=== PATIENT | female | born 1970 | race Caucasian/White ===

== ENCOUNTER 2017-06-30 19:37 | Emergency (ER) | payer BC, MEDICAID ==
[2017-06-30] MEDS ORDERED: diphenhydrAMINE 50 MG/ML SDV IVPUSH ONE (19:59)
[2017-06-30] MEDS ORDERED: methylPREDNISolone Sodium Succinate 125 MG/2 ML SDV IVPUSH ONE (20:00)
[2017-06-30] MEDS ORDERED: Sodium Chloride 0.9% 1,000 ML IV SCH (20:00)
[2017-06-30] MEDS ORDERED: Famotidine 20 MG/2 ML SDV IVPUSH ONE (20:00)
[2017-06-30] MEDS ORDERED: Albuterol/Ipratropium 3.0-0.5 MG/3 ML Neb Soln NEB ONE (20:01)
--- NOTE | 2017-06-30 20:04 | EDM.PDOC ---
ED HPI GENERAL MEDICAL PROBLEM - General Chief Complaint: Chest Pain Stated Complaint: SOB CHEST PAIN Time Seen by Provider: 06/30/17 19:59 Source of Information: Reports: Patient, Family (spouse) History Limitations: Reports: No Limitations - History of Present Illness INITIAL COMMENTS - FREE TEXT/NARRATIVE: 46-year-old female presents to the ED with acute onset of diffuse erythema particularly scalp face and anterior chest. Associated shortness of breath and feeling like her throat is closing in. This caused her to cough but no sputum is produced. Symptoms came on acutely approximately an hour ago. Didn't establish heaviness in her anterior chest. Nothing seems to help this. She reports taking Antabuse last 2 days ago to help stop drinking. Today she started drinking again and symptoms started shortly thereafter. She is mildly nauseated but has not vomited. Has not taken any other medications today. Has no exposure to any foods that she hasn't eaten before. She states she is mildly itchy but has not developed any hives. No previous similar reactions also reports a heaviness in her chest about 2 nights ago. Onset: Today Onset Date: 06/30/17 Onset Time: 19:00 Duration: Minutes: Location: Reports: Head, Face, Neck (Scalp), Chest (Anterior upper chest back), Upper Extremity, Left, Upper Extremity, Right Quality: Reports: Other Severity: Moderate (Mild pruritus.) Improves with: Reports: None Worsens with: Reports: Movement (Walking seemed to make it a bit worse.) Associated Symptoms: Reports: Chest Pain, Cough (Heaviness anterior chest.), Shortness of Breath. Denies: Confusion, cough w sputum, Diaphoresis ( Nonproductive cough), Fever/Chills, Headaches, Loss of Appetite, Malaise, Nausea /Vomiting, Rash, Seizure, Syncope, Weakness Middle Chest Pain Score (Numeric/FACES): 5 - Related Data Allergies Allergy/AdvReac Type Severity Reaction Status Date / Time No Known Allergies Allergy Verified 06/30/17 19:43 Home Meds: Home Meds Acyclovir 200 mg PO DAILY 06/30/17 [History] FLUoxetine [PROzac] 20 mg PO BEDTIME 06/30/17 [History] Past Medical History HEENT History: Reports: Other (See Below) Other HEENT History: wears glasses Gastrointestinal History: Reports: GERD, Other (See Below) Other Gastrointestinal History: ulcers Genitourinary History: Reports: Neurogenic Bladder Psychiatric History: Reports: Addiction, Depression Social & Family History - Tobacco Use Smoking Status *Q: Current Every Day Smoker Years of Tobacco use: 30 Packs/Tins Daily: 1 - Alcohol Use Days Per Week of Alcohol Use: 7 Number of Drinks Per Day: 5 Total Drinks Per Week: 35 - Recreational Drug Use Recreational Drug Use: No - Living Situation & Occupation Living situation: Reports: with Spouse Occupation: Unemployed ED ROS GENERAL - Review of Systems Review Of Systems: See Below Constitutional: Reports: Decreased Appetite. Denies: Fever, Chills, Malaise, Weakness, Fatigue, Weight Loss HEENT: Reports: Glasses, Throat Swelling. Denies: Contact Lenses, Dental Pain, Ear Discharge, Hearing Loss, Nose Pain, Vertigo (Feels like it's closing off at times.) Respiratory: Reports: Shortness of Breath, Wheezing, Cough. Denies: Pleuritic Chest Pain, Sputum, Hemoptysis, Other Cardiovascular: Reports: Chest Pain (Central chest heaviness.). Denies: Blood Pressure Problem, Claudication, Dyspnea on Exertion, Edema, Lightheadedness, Orthopnea, Palpitations Endocrine: Reports: Fatigue GI/Abdominal: Reports: No Symptoms Skin: Reports: Pruritis, Erythema (Diffuse erythema particular affecting her scalp face in blotches anterior neck in the V-shaped of the upper anterior chest neck and spotty over her upper extremities hands. The rash is mildly itchy.) Neurological: Reports: No Symptoms Psychiatric: Reports: No Symptoms Hematologic/Lymphatic: Reports: No Symptoms Immunologic: Reports: No Symptoms ED EXAM, GENERAL - Physical Exam Exam: See Below Exam Limited By: No Limitations General Appearance: Alert, WD/WN, Anxious, Moderate Distress, Other (Obviously erythematous blotchy rash on the face scalp upper extremities and V-shaped of her anterior chest.) Eye Exam: Bilateral Eye: Normal Inspection Nose: Normal Inspection, Normal Mucosa, No Blood Throat/Mouth: Normal Inspection, Normal Lips, Normal Teeth, Normal Oropharynx, Other Head: Atraumatic, Normocephalic (Uvula and for the mouth are normal.) Neck: Normal Inspection, Supple, Non-Tender, Full Range of Motion. No: Lymphadenopathy (L), Lymphadenopathy (R) Respiratory/Chest: No Respiratory Distress, Lungs Clear, Normal Breath Sounds, No Accessory Muscle Use. No: Rhonchi, Wheezing, Stridor Cardiovascular: Normal Peripheral Pulses, Regular Rate, Rhythm, No Edema, No Murmur Peripheral Pulses: 2+: Posterior Tibial (L), Posterior Tibial (R), Dorsalis Pedis (L), Dorsalis Pedis (R) GI/Abdominal: Normal Bowel Sounds, Soft, Non-Tender, No Organomegaly, Other Extremities: Redness (Blotchy rash on the hands forearms.) Neurological: Alert ( No hives.), Oriented, CN II-XII Intact, Normal Cognition, Normal Gait Psychiatric: Normal Affect, Normal Mood Skin Exam: Warm, Dry, Erythema (As described above.) EKG INTERPRETATION EKG Date: 06/30/17 Time: 19:45 Rhythm: Other Rate (Beats/Min): [address] [place]: Normal P-Wave: Enlarged (Consider left atrial hypertrophy pattern.) QRS: Normal ST-T: Normal QT: Normal Course - Vital Signs Last Recorded V/S: Last Vital Signs Temp 36.7 C 06/30/17 19:40 Pulse 118 H 06/30/17 19:40 Resp 18 06/30/17 19:40 BP 120/61 06/30/17 19:40 Pulse Ox 94 L 06/30/17 20:07 - Orders/Labs/Meds Orders: Active Orders 24 hr Category Date Time Status EKG Documentation Completion [RC] STAT Care 06/30/17 20:01 Active RT Aerosol Therapy [RC] ASDIRECTED Care 06/30/17 20:01 Active Chest 1V Frontal [CR] Stat Exams 06/30/17 20:01 Taken Sodium Chloride 0.9% [Normal Saline] 1,000 ml Med 06/30/17 20:00 Active IV ASDIRECTED Medication Orders Sodium Chloride (Normal Saline) 1,000 mls @ 150 mls/hr IV ASDIRECTED KAY Last Admin: 06/30/17 20:16 Dose: 150 mls/hr Labs: Laboratory Tests 06/30/17 06/30/17 06/30/17 Range/Units 19:40 19:40 19:40 WBC 10.88 H (3.98-10.04) K/mm3 RBC 4.49 (3.98-5.22) M/mm3 Hgb 14.6 (11.2-15.7) gm/L Hct 41.9 (34.1-44.9) % MCV 93.3 (79.4-94.8) fl MCH 32.5 H (25.6-32.2) pg MCHC 34.8 (32.2-35.5) g/dl RDW Std Deviation 41.1 (36.4-46.3) fL Plt Count 349 (182-369) K/mm3 MPV 9.6 (9.4-12.3) fl Neutrophils % (Manual) 59 (40-60) % Band Neutrophils % 0 (0-10) % Lymphocytes % (Manual) 30 (20-40) % Atypical Lymphs % 2 % Monocytes % (Manual) 7 (2-10) % Eosinophils % (Manual) 2 (0.7-5.8) % Basophils % (Manual) 0 L (0.1-1.2) Platelet Estimate Adequate Plt Morphology Comment Normal RBC Morph Comment Normal PT (8.0-13.0) SECONDS INR Sodium 141 (136-145) mEq/L Potassium 3.5 (3.5-5.1) mEq/L Chloride 105 (98-107) mEq/L Carbon Dioxide 19 L (21-32) mEq/L Anion Gap 20.5 H (5-15) BUN 14 (7-18) mg/dL Creatinine 1.2 H (0.55-1.02) mg/dL Est Cr Clr Drug Dosing 56.97 mL/min Estimated GFR (MDRD) 48 (>60) mL/min BUN/Creatinine Ratio 11.7 L (14-18) Glucose 113 H (74-106) mg/dL Calcium 9.2 (8.5-10.1) mg/dL Magnesium 1.7 L (1.8-2.4) mg/dl Total Bilirubin 0.2 (0.2-1.0) mg/dL AST 19 (15-37) U/L ALT 30 (14-59) U/L Alkaline Phosphatase 84 (46-116) U/L CK-MB (CK-2) 0.7 (0-3.6) ng/ml Troponin I < 0.017 (0.00-0.056) ng/mL Total Protein 7.2 (6.4-8.2) g/dl Albumin 3.6 (3.4-5.0) g/dl Globulin 3.6 gm/dL Albumin/Globulin Ratio 1.0 (1-2) Ethyl Alcohol 0.19 (0.00) gm% 06/30/17 Range/Units 19:40 WBC (3.98-10.04) K/mm3 RBC (3.98-5.22) M/mm3 Hgb (11.2-15.7) gm/L Hct (34.1-44.9) % MCV (79.4-94.8) fl MCH (25.6-32.2) pg MCHC (32.2-35.5) g/dl RDW Std Deviation (36.4-46.3) fL Plt Count (182-369) K/mm3 MPV (9.4-12.3) fl Neutrophils % (Manual) (40-60) % Band Neutrophils % (0-10) % Lymphocytes % (Manual) (20-40) % Atypical Lymphs % % Monocytes % (Manual) (2-10) % Eosinophils % (Manual) (0.7-5.8) % Basophils % (Manual) (0.1-1.2) Platelet Estimate Plt Morphology Comment RBC Morph Comment PT 10.0 (8.0-13.0) SECONDS INR 0.92 Sodium (136-145) mEq/L Potassium (3.5-5.1) mEq/L Chloride (98-107) mEq/L Carbon Dioxide (21-32) mEq/L Anion Gap (5-15) BUN (7-18) mg/dL Creatinine (0.55-1.02) mg/dL Est Cr Clr Drug Dosing mL/min Estimated GFR (MDRD) (>60) mL/min BUN/Creatinine Ratio (14-18) Glucose (74-106) mg/dL Calcium (8.5-10.1) mg/dL Magnesium (1.8-2.4) mg/dl Total Bilirubin (0.2-1.0) mg/dL AST (15-37) U/L ALT (14-59) U/L Alkaline Phosphatase (46-116) U/L CK-MB (CK-2) (0-3.6) ng/ml Troponin I (0.00-0.056) ng/mL Total Protein (6.4-8.2) g/dl Albumin (3.4-5.0) g/dl Globulin gm/dL Albumin/Globulin Ratio (1-2) Ethyl Alcohol (0.00) gm% Meds: Medications Generic Name Dose Route Start Last Admin Trade Name Sarah PRN Reason Stop Dose Admin Sodium Chloride 1,000 mls @ 150 mls/hr 06/30/17 20:00 06/30/17 20:16 Normal Saline IV 150 mls/hr ASDIRECTED KAY Administration Discontinued Medications Generic Name Dose Route Start Last Admin Trade Name Sarah PRN Reason Stop Dose Admin Albuterol/Ipratropium 3 ml 06/30/17 20:01 06/30/17 20:06 Duoneb 3.0-0.5 Mg/3 Ml NEB 06/30/17 20:02 3 ml ONETIME ONE Administration Albuterol/Ipratropium Confirm 06/30/17 20:09 06/30/17 20:27 Duoneb 3.0-0.5 Mg/3 Ml Administered 06/30/17 20:10 Not Given Dose 3 ml .ROUTE .STK-MED ONE Diphenhydramine HCl 50 mg 06/30/17 19:59 06/30/17 20:21 Benadryl IVPUSH 06/30/17 20:00 50 mg ONETIME ONE Administration Famotidine 20 mg 06/30/17 20:00 06/30/17 20:18 Pepcid IVPUSH 06/30/17 20:01 20 mg ONETIME ONE Administration Methylprednisolone Sodium Succinate 125 mg 06/30/17 20:00 06/30/17 20:20 Solu-Medrol IVPUSH 06/30/17 20:01 125 mg ONETIME ONE Administration - Radiology Interpretation Free Text/Narrative:: 46-year-old female presents to the ED with acute onset of erythema anterior upper chest and neck throat closure feeling and mild pruritus particularly of the face and neck. Patient reports taking Antabuse 2 days ago. She is trying to stop drinking once again. Used probably 2-3 months ago. She did start drinking today did initially feel nauseated but this is past. She then developed a diffuse erythematous rash which is moderately pruritic and heaviness in her anterior chest which I interpreted as mild bronchospasm. Over that she had similar type episode 2 days ago rash involvement more just bronchospasm or heaviness in her anterior chest. ECG and D done by triage nurse shows sinus tachycardia at 1 10/m with perhaps mild left atrial hypertrophy pattern. No evidence of acute ischemia is evident. There is a diffuse early repolarization pattern. Examination revealed no abnormalities on chest exam or auscultation. No swelling of the throat or tongue was evident. She has diffuse erythema in the anterior chest face and arms. Prostatic BX presents with acute allergic reaction unclear at this time as to what although Antabuse adverse effect after taking alcohol may be part of the problem. She has subjective heaviness in her anterior chest. I suspect this is bronchospasm. Will give her a DuoNeb and then treat her with Benadryl 50 mg IV 20 mg of Pepcid IV & Medrol 125 mg IV. Routine labs including cardiac markers will also be done. Of note patient smokes a pack per day for 30 pack years. - Re-Assessments/Exams Free Text/Narrative Re-Assessment/Exam: 06/30/17 20:40: Patient is feeling improved. Erythema is fading in the neck face and scalp. She feels the DuoNeb helped relieve most of her chest discomfort. Chest x-ray is completely normal. Clinically she appears to developed an allergy possibly to Antabuse effect with alcohol. Possibility of another source of allergy correction certainly exist such as food borne. 06/30/17 21:01Labs reveal a normal white count at 10.88 with 59% neutrophils no bands. Hemoglobin is 14.6 with a hematocrit of 41.9. MCV is normal at 93.3. Platelets are normal at 349,000 coags are normal chemistry is normal other than potassium low-normal at 3.5. Bicarbonate was 19 slightly low. Anion gap is 20.5. This appears to be secondary to alcohol-induced ketosis. Creatinine is 1.2.. Glucose was 113. Calcium normal 9.2 magnesium low normal at 1.7. Blood alcohol currently a 0.19 g percent. Cardiac markers are normal. She is feeling much improved. She'll be discharged home to use Benadryl 50 mg every 6 hours when necessary for similar type of reaction. Advise no further use of Antabuse in the future. Follow-up with personal care physician if any further problem's occur or return to the ED. Departure - Departure Time of Disposition: 21:05 Disposition: Home, Self-Care 01 Condition: Fair Clinical Impression: Acute allergic reaction Qualifiers: Encounter type: initial encounter Qualified Code(s): T78.40XA - Allergy, unspecified, initial encounter - Discharge Information Referrals: PCP,None [Primary Care Provider] - Forms: ED Department Discharge Additional Instructions: Evaluation in the emergency him tonight in regards to acute onset of allergic reaction involving erythema or redness of the skin particularly of the anterior chest face upper extremities and scalp. Heaviness in the central chest which I believe was due to bronchospasm i.e. contracture of the upper airway from allergic reaction action. This did not produce any wheezing. You're treated with medications for allergic reaction i.e. Pepcid 20 mg IV with Benadryl 50 g IV and Cymetra 125 mg IV. Also giving a breathing treatment which seem to relieve your central chest pressure discomfort which again suggests bronchospasm. Symptoms continued to improve while in the ED and chest x-ray and lab work proved to be normal other than showing mature mildly dehydrated from alcohol use and not eating for the last day or so. Treatment is to be Benadryl every 6 hours if needed first recurrence of similar type reaction. Advise no further use of Antabuse as it is likely the culprit in terms of causing allergic reaction or adverse reaction due to alcohol use. Advise plenty of fluids such as Gatorade or Powerade drink provide rehydration and get back on some food tonight. [facility] at [phone], if further treatment is deemed necessary for help to stop drinking alcohol. - My Orders Last 24 Hours: My Active Orders 06/30/17 20:00 Sodium Chloride 0.9% [Normal Saline] 1,000 ml IV ASDIRECTED 06/30/17 20:01 EKG Documentation Completion [RC] STAT RT Aerosol Therapy [RC] ASDIRECTED Chest 1V Frontal [CR] Stat - Assessment/Plan Last 24 Hours: My Active Orders 06/30/17 20:00 Sodium Chloride 0.9% [Normal Saline] 1,000 ml IV ASDIRECTED 06/30/17 20:01 EKG Documentation Completion [RC] STAT RT Aerosol Therapy [RC] ASDIRECTED Chest 1V Frontal [CR] Stat
[2017-06-30] MEDS ORDERED: Albuterol/Ipratropium 3.0-0.5 MG/3 ML Neb Soln ONE (20:09)
--- NOTE | 2017-07-02 11:40 | CR ---
Chest: Portable view of the chest was obtained. Comparison: No prior chest x-ray. Heart size and mediastinum are within normal limits. Lungs are clear. Bony structures are grossly intact. Impression: 1. Nothing acute is identified on portable chest x-ray. Diagnostic code #1
== END 2017-06-30 21:13 | disposition home or self-care (01) ==
LOC: JD.ED 19:37
DX: T78.40XA Allergy, unspecified, initial encounter (principal); F17.210 Nicotine dependence, cigarettes, uncomplicated
CPT/HCPCS: 36415; 71010; 80053; 82553; 83735; 84484; 85025; 85610; 93005; 94640; 96361; 96374; 96375; 99285; G0480; J1200; J2930; J7040; 93010; 99284

== ENCOUNTER 2017-12-28 16:54 | Emergency (ER) | payer MEDICAID ==
[2017-12-28] MEDS ORDERED: Lidocaine 1% with EPINEPHrine 1:100,000 20 ML MDV INJECT ONE (17:46)
[2017-12-28] MEDS ORDERED: Lidocaine 1% with EPINEPHrine 1:100,000 20 ML MDV ONE (17:55)
--- NOTE | 2017-12-28 18:42 | EDM.PDOC ---
ED HPI GENERAL MEDICAL PROBLEM - General Chief Complaint: Laceration Stated Complaint: RIGHT ANKLE LAC Time Seen by Provider: 12/28/17 17:28 Source of Information: Reports: Patient History Limitations: Reports: No Limitations - History of Present Illness INITIAL COMMENTS - FREE TEXT/NARRATIVE: The patient presents with a laceration to the right heal. She was walking into some ones house and she got hit with a screen door to the heel. She has a 3.5cm laceration to the heal. Her tetanus is up to date. Onset: Sudden Duration: Minutes: Location: Reports: Lower Extremity, Right (heel) Quality: Reports: Sharp Severity: Moderate Improves with: Reports: None Worsens with: Reports: None Associated Symptoms: Reports: No Other Symptoms Right Posterior Ankle Pain Score (Numeric/FACES): 6 - Related Data Allergies Allergy/AdvReac Type Severity Reaction Status Date / Time No Known Allergies Allergy Verified 06/30/17 19:43 Home Meds: Home Meds Acyclovir 200 mg PO DAILY 06/30/17 [History] FLUoxetine [PROzac] 20 mg PO BEDTIME 06/30/17 [History] Oxybutynin 5 mg PO DAILY 12/28/17 [History] Pantoprazole Sodium [Protonix] 40 mg PO DAILY 12/28/17 [History] busPIRone [Buspar] 10 mg PO DAILY 12/28/17 [History] Past Medical History HEENT History: Reports: Other (See Below) Other HEENT History: wears glasses Gastrointestinal History: Reports: GERD, Other (See Below) Other Gastrointestinal History: ulcers Genitourinary History: Reports: Neurogenic Bladder Psychiatric History: Reports: Addiction, Depression Social & Family History - Family History Family Medical History: Noncontributory - Tobacco Use Smoking Status *Q: Current Every Day Smoker Years of Tobacco use: 30 Packs/Tins Daily: 1 - Recreational Drug Use Recreational Drug Use: No - Living Situation & Occupation Living situation: Reports: with Spouse Occupation: Unemployed ED ROS GENERAL - Review of Systems Review Of Systems: See Below Constitutional: Reports: No Symptoms HEENT: Reports: No Symptoms Respiratory: Reports: No Symptoms Cardiovascular: Reports: No Symptoms Endocrine: Reports: No Symptoms GI/Abdominal: Reports: No Symptoms : Reports: No Symptoms Musculoskeletal: Reports: Other (laceration to the right heel and achiles tendon area) ED EXAM, SKIN/RASH Exam: See Below Exam Limited By: No Limitations General Appearance: Alert, No Apparent Distress Ears: Normal External Exam Nose: Normal Inspection Head: Atraumatic, Normocephalic Neck: Normal Inspection Respiratory/Chest: No Respiratory Distress Extremities: Other (3.5 laceration to the posterior ankle) ED SKIN PROCEDURES - Laceration/Wound Repair Right Ankle Lac/Wound length In cm: 3.5 Appearance: Subcutaneous, Irregular Distal NVT: Neuro & Vascular Intact, No Tendon Injury Anesthetic Type: Local Local Anesthesia - Lidocaine (Xylocaine): 1% with EPI Skin Prep: Saline Exploration/Debridement/Repair: Wound Explored, In a Bloodless Field, Explored to Base Closed with: Sutures Suture Size: 3-0 # of Sutures: 5 Suture Type: Nylon, Interrupted, Simple Tetanus Status Addressed: Yes Complications: No Course - Vital Signs Last Recorded V/S: Last Vital Signs Temp 98.6 F 12/28/17 17:14 Pulse 93 12/28/17 17:14 Resp 16 12/28/17 17:14 BP 119/89 12/28/17 17:14 Pulse Ox 95 12/28/17 17:14 - Orders/Labs/Meds Meds: Medications Discontinued Medications Generic Name Dose Route Start Last Admin Trade Name Sarah PRN Reason Stop Dose Admin Lidocaine/Epinephrine 20 ml 12/28/17 17:46 12/28/17 18:14 Xylocaine 1% With Epinephrine 1:100,000 INJECT 12/28/17 17:47 20 ml ONETIME ONE Administration Lidocaine/Epinephrine Confirm 12/28/17 17:55 12/28/17 18:14 Xylocaine 1% With Epinephrine 1:100,000 Administered 12/28/17 17:56 Not Given Dose 20 ml .ROUTE .STK-MED ONE - Re-Assessments/Exams Free Text/Narrative Re-Assessment/Exam: 12/28/17 18:40 I examined the laceration and there was no tendon injury. I sutured her wound. I will discharge her home. Departure - Departure Time of Disposition: 18:40 Disposition: Home, Self-Care 01 Condition: Good Clinical Impression: Laceration of leg Qualifiers: Encounter type: initial encounter Laterality: right Qualified Code(s): S81.811A - Laceration without foreign body, right lower leg, initial encounter - Discharge Information Referrals: Lizbeth Hill NP [Primary Care Provider] - 1 Week Additional Instructions: Wash the wound with warm soapy water 2 times per day and apply antibiotic ointment after. Have the sutures removed in 7 to 10 days. Look for any signs of infection to include redness, swelling, pain or drainage. If you see any of these signs please return and we will need to start oral antibiotics.
== END 2017-12-28 18:49 | disposition home or self-care (01) ==
LOC: JD.ED 16:54
DX: S91.011A Laceration without foreign body, right ankle, initial encounter (principal); K21.9 Gastro-esophageal reflux disease without esophagitis; F17.210 Nicotine dependence, cigarettes, uncomplicated; W22.8XXA Striking against or struck by other objects, initial encounter
CPT/HCPCS: 12002; 99283-25

== ENCOUNTER 2019-01-11 08:02 | Inpatient (IN) | payer BC, MEDICAID ==
[2019-01-11] MEDS ORDERED: Dextrose 5%-0.9% NaCl 1,000 ML IV SCH (08:30)
--- NOTE | 2019-01-11 08:31 | EDM.PDOC ---
ED HPI GENERAL MEDICAL PROBLEM - General Chief Complaint: Gastrointestinal Problem Stated Complaint: BLOOD IN STOOL,DIZZY Time Seen by Provider: 01/11/19 08:21 Source of Information: Reports: Patient History Limitations: Reports: No Limitations - History of Present Illness INITIAL COMMENTS - FREE TEXT/NARRATIVE: 48-year-old female presents to the ED with acute onset of bleeding per rectum since 0100 hrs. this morning. She didn't have a look at the first bowel movement is therefore not sure if there was blood in it. The second one containing a small amount of stool but bright red blood that colored the toilet bowl. Subsequently she has gone almost every hour with diffuse associated lower abdominal cramping pain and remains bright red blood sometimes with clots she thinks and the bottom of the toilet. She has never had a colonoscopy. A history of colon cancer. Previous abdominal surgery is that of a total abdominal hysterectomy with retention of the ovaries. He feels lightheaded dizzy upon standing in fact at one point she had to get down to the floor because she felt she was going to pass out. Initial labs show a BP of 141/71. Pulse of 59 and sinus. Orthostatic BPs are to be done.. No bleeding per rectum is painless. Associated diffuse lower abdominal cramping pain and some chills. She is afebrile. Patient has a history of GERD well-controlled with Protonix or Nexium daily. She denies taking aspirins Motrin or Aleve. Alcohol use usually one or 2 beers daily. Smoker half pack to a pack per day no defined history of peptic ulcer Onset: Today Onset Date: 01/11/19 Onset Time: 01:00 Duration: Hour(s): Location: Reports: Other Quality: Reports: Other Severity: Moderate (Lower abdominal cramping pain which is constant) Improves with: Reports: None ( 6 out of 10) Worsens with: Reports: None Context: Reports: Other (Spontaneous occurrence of bright red bleeding per rectum.). Denies: Activity, Exercise, Sick Contact, Trauma Associated Symptoms: Reports: Malaise, Nausea/Vomiting (For lightheaded dizziness.), Other. 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.) Bilateral Lower Abdomen Pain Score (Numeric/FACES): 8 - Related Data Allergies Allergy/AdvReac Type Severity Reaction Status Date / Time No Known Allergies Allergy Verified 01/11/19 08:11 Home Meds: Home Meds Acyclovir 200 mg PO DAILY 06/30/17 [History] Oxybutynin 5 mg PO DAILY 12/28/17 [History] Pantoprazole Sodium [Protonix] 40 mg PO DAILY 12/28/17 [History] Past Medical History HEENT History: Reports: Other (See Below) Other HEENT History: wears glasses Gastrointestinal History: Reports: GERD, Other (See Below) Other Gastrointestinal History: ulcers Genitourinary History: Reports: Neurogenic Bladder 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: Psychiatric History: Reports: Addiction, Depression - Infectious Disease History Infectious Disease History: Reports: Chicken Pox - Past Surgical History HEENT Surgical History: Reports: Oral Surgery Female Surgical History: Reports: Section, Hysterectomy (With retention of both ovaries) Social & Family History - Family History Family Medical History: Noncontributory - Tobacco Use Smoking Status *Q: Current Every Day Smoker Years of Tobacco use: 35 Packs/Tins Daily: 1 - Caffeine Use Caffeine Use: Reports: Coffee - Alcohol Use Days Per Week of Alcohol Use: 3 Number of Drinks Per Day: 3 Total Drinks Per Week: 9 - Recreational Drug Use Recreational Drug Use: No - Living Situation & Occupation Living situation: Reports: with Spouse Occupation: Unemployed ED ROS GENERAL - Review of Systems Review Of Systems: See Below Constitutional: Reports: Malaise, Weakness, Fatigue, Other (Lightheaded and dizzy.). Denies: Fever, Chills HEENT: Reports: No Symptoms Respiratory: Reports: No Symptoms Cardiovascular: Reports: Other (Occasional nonproductive cough) Endocrine: Reports: Fatigue GI/Abdominal: Reports: Abdominal Pain, Hematochezia (Diffuse intermittent lower abdominal cramping pain which is pretty constant. Associated with bright red bleeding per rectum. As 1:00 this morning.) : Reports: No Symptoms Musculoskeletal: Reports: No Symptoms Skin: Reports: No Symptoms Neurological: Reports: Dizziness (Lightheaded feeling) Psychiatric: Reports: No Symptoms ( faint and had to get down on the floor once this morning.) Hematologic/Lymphatic: Reports: No Symptoms Immunologic: Reports: No Symptoms ED EXAM, GI/ABD - Physical Exam Exam: See Below Exam Limited By: No Limitations General Appearance: Alert, WD/WN, No Apparent Distress, Other (Color is good vital signs are stable.) Eyes: Bilateral: Normal Appearance (No bladder for oral pallor. Pancreas is within normal) Throat/Mouth: Other Head: Atraumatic, Normocephalic (Tongue is minimally dry) Neck: Normal Inspection, Supple, Non-Tender, Full Range of Motion, Limited Range of Motion. No: Carotid Bruit, Lymphadenopathy (L) Respiratory/Chest: No Respiratory Distress, Lungs Clear, Normal Breath Sounds, No Accessory Muscle Use Cardiovascular: Normal Peripheral Pulses, Regular Rate, Rhythm, No Edema, No Gallop, No Murmur, No Rub GI/Abdominal Exam: No Abnormal Bruit, No Mass, Pelvis Stable, Tender (Tender left lower quadrant and suprapubically), Abnormal Bowel Sounds (Sounds are quite active in all 4 quadrants.). No: Guarding ( without guarding or rigidity) , Rigid, Rebound Back Exam: Normal Inspection, Full Range of Motion. No: CVA Tenderness (L), CVA Tenderness (R) Extremities: Normal Inspection, Normal Range of Motion, Non-Tender, Normal Capillary Refill Neurological: Alert, Oriented, CN II-XII Intact, Normal Cognition, Normal Gait Psychiatric: Anxious Skin Exam: Warm, Dry, Intact, Normal Color, No Rash ED ABDOMINAL/GI PROCEDURES - Additional/Other Procedure(s) Procedure(s) (Free Text): Rigid sigmoidoscopy performed up to 22 cm. Visualized portions of the proximal bowel show no abnormalities in the mucosa such as ulceration or any bleeding from above this area. There is a internal hemorrhoid which is deflated and dark bluish abreu in color at the 7 o'clock position that appears to be the source for bleeding although was not actively bleeding on my exam. No anal fissures are evident. No masses were identified. She tolerated this procedure very well. Course - Vital Signs Last Recorded V/S: Last Vital Signs Temp 35.8 C 01/11/19 08:08 Pulse 59 L 01/11/19 08:08 Resp 18 01/11/19 08:08 BP 142/71 H 01/11/19 08:08 Pulse Ox 100 01/11/19 08:08 Orthostatic Blood Pressure [ 131/78 Standing] Orthostatic Blood Pressure [ 144/74 Sitting] Orthostatic Blood Pressure [ 130/71 Supine] - Orders/Labs/Meds Orders: Active Orders 24 hr Category Date Time Status Admission Status [Patient Status] [ADT] Routine ADT 01/11/19 12:32 Active Hemoccult [Fecal Occult Blood Collection] [RC] Care 01/11/19 10:29 Active ASDIRECTED Orthostatic Vital Signs [RC] ASDIRECTED Care 01/11/19 08:21 Active Abdomen 1V Flat [CR] Stat Exams 01/11/19 08:45 Taken Dextrose 5%-0.9% NaCl [Dextrose 5%-Normal Saline] 1,000 Med 01/11/19 08:30 Active ml IV ASDIRECTED Sodium Chloride 0.9% [Saline Flush] Med 01/11/19 10:47 Active 10 ml FLUSH ONETIME PRN metroNIDAZOLE/Normal Saline [Flagyl 500 MG in NS 100 ML Med 01/11/19 12:26 Active ] 500 mg Premix Bag 1 bag IV ONETIME Medication Orders Dextrose/Sodium Chloride (Dextrose 5%-Normal Saline) 1,000 mls @ 999 mls/hr IV ASDIRECTED KAY Last Admin: 01/11/19 09:03 Dose: 999 mls/hr Metronidazole 500 mg/ Premix 100 mls @ 100 mls/hr IV ONETIME ONE Stop: 01/11/19 13:25 Sodium Chloride (Saline Flush) 10 ml FLUSH ONETIME PRN PRN Reason: IV FLUSH Last Admin: 01/11/19 11:04 Dose: 10 ml Labs: Laboratory Tests 01/11/19 01/11/19 01/11/19 Range/Units 08:38 09:00 09:00 WBC 16.84 H (3.98-10.04) K/mm3 RBC 4.64 (3.98-5.22) M/mm3 Hgb 14.6 (11.2-15.7) gm/L Hct 42.9 (34.1-44.9) % MCV 92.5 (79.4-94.8) fl MCH 31.5 (25.6-32.2) pg MCHC 34.0 (32.2-35.5) g/dl RDW Std Deviation 41.4 (36.4-46.3) fL Plt Count 294 (182-369) K/mm3 MPV 9.5 (9.4-12.3) fl Neutrophils % (Manual) 87 H (40-60) % Band Neutrophils % 1 (0-10) % Lymphocytes % (Manual) 8 L (20-40) % Atypical Lymphs % 0 % Monocytes % (Manual) 4 (2-10) % Eosinophils % (Manual) 0 L (0.7-5.8) % Basophils % (Manual) 0 L (0.1-1.2) Toxic Granulation 1+ slight Platelet Estimate Adequate RBC Morph Comment Normal PT 10.4 (9.5-12.1) SECONDS INR 0.95 APTT 29 (24-31) SECONDS Sodium (136-145) mEq/L Potassium (3.5-5.1) mEq/L Chloride (98-107) mEq/L Carbon Dioxide (21-32) mEq/L Anion Gap (5-15) BUN (7-18) mg/dL Creatinine (0.55-1.02) mg/dL Est Cr Clr Drug Dosing mL/min Estimated GFR (MDRD) (>60) mL/min BUN/Creatinine Ratio (14-18) Glucose (74-106) mg/dL Calcium (8.5-10.1) mg/dL Total Bilirubin (0.2-1.0) mg/dL AST (15-37) U/L ALT (14-59) U/L Alkaline Phosphatase (46-116) U/L C-Reactive Protein (<1.0) mg/dL Total Protein (6.4-8.2) g/dl Albumin (3.4-5.0) g/dl Globulin gm/dL Albumin/Globulin Ratio (1-2) Urine Color Yellow (Yellow) Urine Appearance Clear (Clear) Urine pH 6.0 (5.0-8.0) Ur Specific [place] > or = 1.030 (1.005-1.030) Urine Protein Negative (Negative) Urine Glucose (UA) Negative (Negative) Urine Ketones 4+ H (Negative) Urine Occult Blood Negative (Negative) Urine Nitrite Negative (Negative) Urine Bilirubin Negative (Negative) Urine Urobilinogen 0.2 (0.2-1.0) Ur Leukocyte Esterase Negative (Negative) Urine RBC 0-5 (0-5) /hpf Urine WBC 0-5 (0-5) /hpf Ur Squamous Epith Cells 5-10 H (0-5) /hpf Urine Bacteria Few (FEW) /hpf Urine Mucus Moderate H (FEW) /hpf H. pylori IgG Antibody (NEGATIVE) 01/11/19 01/11/19 Range/Units 09:00 09:00 WBC (3.98-10.04) K/mm3 RBC (3.98-5.22) M/mm3 Hgb (11.2-15.7) gm/L Hct (34.1-44.9) % MCV (79.4-94.8) fl MCH (25.6-32.2) pg MCHC (32.2-35.5) g/dl RDW Std Deviation (36.4-46.3) fL Plt Count (182-369) K/mm3 MPV (9.4-12.3) fl Neutrophils % (Manual) (40-60) % Band Neutrophils % (0-10) % Lymphocytes % (Manual) (20-40) % Atypical Lymphs % % Monocytes % (Manual) (2-10) % Eosinophils % (Manual) (0.7-5.8) % Basophils % (Manual) (0.1-1.2) Toxic Granulation Platelet Estimate RBC Morph Comment PT (9.5-12.1) SECONDS INR APTT (24-31) SECONDS Sodium 138 (136-145) mEq/L Potassium 3.9 (3.5-5.1) mEq/L Chloride 103 (98-107) mEq/L Carbon Dioxide 22 (21-32) mEq/L Anion Gap 16.9 H (5-15) BUN 19 H (7-18) mg/dL Creatinine 0.9 (0.55-1.02) mg/dL Est Cr Clr Drug Dosing 74.34 mL/min Estimated GFR (MDRD) > 60 (>60) mL/min BUN/Creatinine Ratio 21.1 H (14-18) Glucose 112 H (74-106) mg/dL Calcium 8.6 (8.5-10.1) mg/dL Total Bilirubin 0.4 (0.2-1.0) mg/dL AST 16 (15-37) U/L ALT 21 (14-59) U/L Alkaline Phosphatase 76 (46-116) U/L C-Reactive Protein 0.3 (<1.0) mg/dL Total Protein 7.1 (6.4-8.2) g/dl Albumin 3.9 (3.4-5.0) g/dl Globulin 3.2 gm/dL Albumin/Globulin Ratio 1.2 (1-2) Urine Color (Yellow) Urine Appearance (Clear) Urine pH (5.0-8.0) Ur Specific [place] (1.005-1.030) Urine Protein (Negative) Urine Glucose (UA) (Negative) Urine Ketones (Negative) Urine Occult Blood (Negative) Urine Nitrite (Negative) Urine Bilirubin (Negative) Urine Urobilinogen (0.2-1.0) Ur Leukocyte Esterase (Negative) Urine RBC (0-5) /hpf Urine WBC (0-5) /hpf Ur Squamous Epith Cells (0-5) /hpf Urine Bacteria (FEW) /hpf Urine Mucus (FEW) /hpf H. pylori IgG Antibody Negative (NEGATIVE) Meds: Medications Generic Name Dose Route Start Last Admin Trade Name Freq PRN Reason Stop Dose Admin Dextrose/Sodium Chloride 1,000 mls @ 999 mls/hr 01/11/19 08:30 01/11/19 09:03 Dextrose 5%-Normal Saline IV 999 mls/hr ASDIRECTED KAY Administration Metronidazole 500 mg/ Premix 100 mls @ 100 mls/hr 01/11/19 12:26 IV 01/11/19 13:25 ONETIME ONE Sodium Chloride 10 ml 01/11/19 10:47 01/11/19 11:04 Saline Flush FLUSH 10 ml ONETIME PRN Administration IV FLUSH Discontinued Medications Generic Name Dose Route Start Last Admin Trade Name Freq PRN Reason Stop Dose Admin Diatrizoate Meglum/Diatrizoate Sod 120 ml 01/11/19 10:47 01/11/19 11:04 Gastrografin 37% PO 01/11/19 10:48 90 ml ONETIME ONE Administration Hydromorphone HCl 0.5 mg 01/11/19 08:38 01/11/19 09:13 Dilaudid IVPUSH 01/11/19 08:39 0.5 mg ONETIME ONE Administration Hydromorphone HCl 0.5 mg 01/11/19 10:11 01/11/19 10:16 Dilaudid IVPUSH 01/11/19 10:12 0.5 mg ONETIME STA Administration Levofloxacin/Dextrose 750 mg/ 150 mls @ 100 mls/hr 01/11/19 09:51 01/11/19 09 :59 Premix IV 01/11/19 11:20 100 mls/hr ONETIME ONE Administration Iohexol 100 ml 01/11/19 10:46 01/11/19 11:04 Omnipaque-300 IVPUSH 01/11/19 10:47 100 ml ONETIME ONE Administration Lidocaine HCl 10 ml 01/11/19 08:39 01/11/19 09:16 Xylocaine 2% Jelly MUCMEM 01/11/19 08:40 10 ml ONETIME ONE Administration Ondansetron HCl 4 mg 01/11/19 08:38 01/11/19 09:10 Zofran IVPUSH 01/11/19 08:39 4 mg ONETIME ONE Administration - Radiology Interpretation Free Text/Narrative:: 48-year-old female presents to the ED with reported sudden onset of lower abdominal cramping pain and then bleeding per rectum almost every hour since 0100 hrs. this morning. Feels chilled at times. No pain in the last 2-3 days in the area. No history of diverticulitis. She is tender in the left lower quadrant without rebound or guarding. Also suprapubically tender. Seems to be bleeding bright red blood with some clots. Painless bowel movement. Feels lightheaded and dizzy. Orthostatic BPs to be done. At this time the abdomen is benign with no peritoneal signs. One view of the abdomen will be obtained with routine labs including coags. We'll plan on pursuing a rigid sigmoidoscopy and consent for this procedure will be obtained. Will give Dilaudid 0.5 mg IV with Zofran 4 mg IV for pain and nausea relief. - Re-Assessments/Exams Free Text/Narrative Re-Assessment/Exam: 01/11/19 09:03 patient is not orthostatic. 01/11/19 09:43 Labs reveal an elevated white count at 16.84 with a left shift of 87% neutrophils and 1% bands. This suggest an underlying infective process such as diverticulitis. Hemoglobin is 14.6 with hematocrit of 42.9. Platelet count is 294,000.. PT is 10.4 with an INR of 0.95 PTT is 29. Sodium 138 with potassium of 3.9. Chloride 103 with a bicarbonate of 22. Anion gap is mildly elevated at 16.9.. BUN is 19. Which is against an upper GI bleed source. Creatinine is 0.9. GFR is greater than 60. Glucose is 112. Calcium is 8.6. Liver function is normal. C-reactive protein is 0.3. Urinalysis shows 4+ ketones. 5-10 squamous cells and moderate amount of mucus but no signs of infection. H. pylori serology is negative for the IgG antibody. Plan due to the suspicion with elevated white count and tenderness in the left lower quadrant patient may have an atypical presentation for diverticulitis. She will therefore have CT of the abdomen and pelvis carried out with oral and IV contrast. She reports the pain is well-controlled after initial dose of Dilaudid 0.5 mg IV and no further nausea. Abdominal x-ray reveals no abnormalities. There is stone in the right upper quadrant likely representing a gallstone. There is no sign of an ileus no free air. Is very minimal stool in the colon. Discussed the findings with the patient and her . We will pursue CT of the abdomen with oral and IV contrast. Clinical suspicion that she has diverticulitis she'll be started on Levaquin 750 mg IV. 01/11/19 10:39 patient did pass a blood clot per rectum. Was tested guaicc positive. He is having more pain after taking oral contrast. Repeat Dilaudid 0.[address] scan of the abdomen and pelvis has been completed. It shows a small portion of the visualized lung bases to be showing slight scarring within the left base. She has a small hiatal hernia containing contrast with reflux into the distal esophagus. Spleen appears normal. Single large gallstone noted within the gallbladder showing calcification measuring about 2.2 cm in size. Pancreas appears within normal limits kidney shows symmetric and contrast enhancement. There is a large cyst noted within the mid right kidney at 2.7 cm. Kidneys otherwise appear unremarkable. Aorta shows no aneurysm. No retroperitoneal adenopathy or mesenteric abnormalities are identified. Pelvic no pelvic mass or definite adenopathy is noted. Appendix is seen and normal in size. There is diffuse bowel wall thickening with bowel wall edema noted within the descending colon. Findings are compatible with a nonspecific colitis. Bowel is otherwise within normal limits in appearance. No free fluid or inflammatory changes are seen. Delayed images show contrast within the distal ureters and bladder. 01/11/19 11:45: Spoke with Dr. Bianca Wood --neonatal intensive care nurse surgeon and she will see the patient on the [facility] surgery floor. She prefers the patient be admitted to the [facility] service under hospitalist care. I therefore did speak to Dr. Anders who is on-call this weekend. He will attend her in the ED. Departure - Departure Time of Disposition: 12:37 Disposition: Admitted As Inpatient 66 Condition: Fair Clinical Impression: Lower gastrointestinal bleed, Non-specific colitis Abdominal pain Qualifiers: Abdominal location: left lower quadrant Qualified Code(s): R10.32 - Left lower quadrant pain - Discharge Information *PRESCRIPTION DRUG MONITORING PROGRAM REVIEWED*: Not Applicable *COPY OF PRESCRIPTION DRUG MONITORING REPORT IN PATIENT LOBITO: Not Applicable - My Orders Last 24 Hours: My Active Orders 01/11/19 08:21 Orthostatic Vital Signs [RC] ASDIRECTED 01/11/19 08:30 Dextrose 5%-0.9% NaCl [Dextrose 5%-Normal Saline] 1,000 ml IV ASDIRECTED 01/11/19 08:45 Abdomen 1V Flat [CR] Stat 01/11/19 10:29 Hemoccult [Fecal Occult Blood Collection] [RC] ASDIRECTED 01/11/19 10:47 Sodium Chloride 0.9% [Saline Flush] 10 ml FLUSH ONETIME PRN 01/11/19 12:26 metroNIDAZOLE/Normal Saline [Flagyl 500 MG in NS 100 ML] 500 mg Premix Bag 1 bag IV ONETIME 01/11/19 12:32 Admission Status [Patient Status] [ADT] Routine - Assessment/Plan Last 24 Hours: My Active Orders 01/11/19 08:21 Orthostatic Vital Signs [RC] ASDIRECTED 01/11/19 08:30 Dextrose 5%-0.9% NaCl [Dextrose 5%-Normal Saline] 1,000 ml IV ASDIRECTED 01/11/19 08:45 Abdomen 1V Flat [CR] Stat 01/11/19 10:29 Hemoccult [Fecal Occult Blood Collection] [RC] ASDIRECTED 01/11/19 10:47 Sodium Chloride 0.9% [Saline Flush] 10 ml FLUSH ONETIME PRN 01/11/19 12:26 metroNIDAZOLE/Normal Saline [Flagyl 500 MG in NS 100 ML] 500 mg Premix Bag 1 bag IV ONETIME 01/11/19 12:32 Admission Status [Patient Status] [ADT] Routine
[2019-01-11] MEDS ORDERED: Ondansetron 4 MG/2 ML SDV IVPUSH ONE (08:38)
[2019-01-11] MEDS ORDERED: HYDROmorphone 0.5 MG/0.5 ML Syringe IVPUSH ONE (08:38)
[2019-01-11] MEDS ORDERED: Lidocaine 2% Jelly 10 ML Urojet MUCMEM ONE (08:39)
[2019-01-11] MEDS ORDERED: Levofloxacin/Dextrose 5%-Water 750 MG in Premix Bag 1 BAG IV ONE (09:51)
[2019-01-11] MEDS ORDERED: HYDROmorphone 0.5 MG/0.5 ML Syringe IVPUSH STA ×2 (10:11→13:03)
[2019-01-11] MEDS ORDERED: Iohexol 647 MG/ML 100 ML Bottle IVPUSH ONE (10:46)
[2019-01-11] MEDS ORDERED: Sodium Chloride 0.9% 10 ML Syringe FLUSH PRN (10:47)
[2019-01-11] MEDS ORDERED: Diatrizoate Meglumine/Diatrizoate Sodium 37% 120 ML Bottle PO ONE (10:47)
--- NOTE | 2019-01-11 11:34 | CT ---
CT abdomen and pelvis Technique: Multiple axial sections were obtained from above the dome of the diaphragm inferiorly through the pubic symphysis. Intravenous and oral contrast was utilized. Delayed images were obtained through the bladder. Comparison: Prior abdominal plain film study performed earlier on the same day (9:05 AM). Findings: Small portion of the visualized lung bases show slight scarring within the left base. Liver contains no focal parenchymal abnormality. Small hiatal hernia is seen with contrast reflux into distal esophagus. Spleen appears within normal limits. Single large gallstone is noted within the gallbladder showing calcification and measuring about 2.2 cm in size. Pancreas appears within normal limits. Kidneys show symmetric contrast enhancement. Cyst is noted within the mid right kidney measuring approximately 2.7 cm in size. Kidneys are otherwise unremarkable. Aorta shows no aneurysm. No retroperitoneal adenopathy or mesenteric abnormalities are seen. No pelvic mass or adenopathy is seen. Appendix is seen which is normal in size. Bowel wall thickening with bowel wall edema is noted within the descending colon. Findings are compatible with a nonspecific colitis. Bowel is otherwise within normal limits in appearance. No free fluid or inflammatory change is seen. Delayed images show contrast within the distal ureters and bladder. Bone window settings were reviewed which appear within normal limits for the patient's age. Impression: 1. Bowel wall thickening with bowel wall edema is seen within the descending colon. Findings are compatible with a nonspecific colitis. 2. Other incidental findings as noted above. Diagnostic code #3
[2019-01-11] MEDS ORDERED: metroNIDAZOLE/Normal Saline 500 MG in Premix Bag 1 BAG IV ONE (12:26)
[2019-01-11] MEDS ORDERED: Acetaminophen 325 MG Tab PO PRN (13:18)
--- NOTE | 2019-01-11 14:26 | HP ---
DATE OF ADMISSION: 01/11/2019 HISTORY OF PRESENT ILLNESS: This is a 48-year-old female who presents to the ER with complaints of abdominal pain, followed by bloody stools. The patient was seen by Dr. Hills around 8:00 a.m. this morning with the onset of bloody stools and diarrhea last night, accompanied by a colicky abdominal pain. She did not know it was bloody until she passed a 2nd stool. The patient has no history of previous symptoms such as this other than 2 or 3 episodes where she would get a severe abdominal pain over the past 2-3 years, sometimes severe enough to cause her to not be able to stand up and then passing. She has never before passed bloody or melenic stool. She has had tight small bowel movements during those previous episodes, and she thought this was just the cause of it. She felt like she was going to pass out, so she states that she would just lie down on the ground before she did this. She has had some mild fever and chills, but she has had no tainted food that she is aware of. Yesterday, she ate a couple of hot dogs, some ice cream from home, and did drink water. She has no exposure to well water. No exposure to sick animals. She does not live on a farm, and she does not drink well water. Pain associated with this has been very severe. She required some Dilaudid. The patient has had previous abdominal hysterectomy and oophorectomy, but otherwise no abdominal surgery. The patient has minimal joint symptoms other than stiffness. The patient has no history of hepatitis, renal or liver disease, or pancreatitis. The patient does drink alcohol. Does not do drugs. Does smoke daily. The patient has no occupational exposure to anything toxic that she is aware of. PAST MEDICAL HISTORY: Remarkable for herpes lesions, currently not being treated. The patient also has some bladder incontinence issues and does take oxybutynin. The patient also has some GERD symptoms and does take Protonix. The patient has had previous addiction problems per the ER note, but she did not pass this on to me. The patient has had no other infectious diseases. She does drink coffee. She does eat a regular diet. She does not have any intolerances. She drinks about 9 drinks per week. She currently is not employed, and she does live with a significant other. REVIEW OF SYSTEMS: Negative for any neurologic symptoms other than mild dizziness when this started. Yesterday, she was feeling fine and she has not had any small-caliber stools in a while, although when she thinks about it, she thinks they have been getting smaller slowly. The patient has not been taking any anti-inflammatories or Tylenol. PHYSICAL EXAMINATION: GENERAL: Shows a well-developed, well-nourished female who has extensive tattoos. HEENT: Unremarkable. SKIN: Negative other than tattoos. NECK: Thyroid is grossly normal. Carotids unremarkable. LUNGS: Lung sounds are clear and equal and slightly diminished. CARDIAC: Shows a normal S1 and S2 without murmur. There is no S3 or S4. BREASTS: Not examined. ABDOMEN: Shows mild lower abdominal pain. No rebound. No guarding. No bruits appreciated. Left lower quadrant may be a little bit more tender than the other. EXTREMITIES: Unremarkable. She has no unusual tremor or loss of strength. NEUROLOGIC: Grossly normal. RADIOGRAPHIC STUDIES: X-ray was unremarkable, and Dr. Hills did do a short sigmoid flexible scope and did not see any ulceration or bleeding. There was occasional internal hemorrhoid. The patient had no anal fissures or perineal findings. CT scan was obtained showing extensive narrowing of the descending colon for a significant segment, probably about 10 cm. This has been read by Radiology and confirmed. There has been no aneurysms, lymphadenopathy. There are no abnormalities of the pancreas. She has a single large gallstone noted. Liver is unremarkable for lesions. There is significant bowel wall thickening as the main finding, suspicious for nonspecific colitis. ASSESSMENT AND PLAN: Colitis with bloody diarrhea, acute onset. We will presume it is infectious until knowing otherwise. Stool cultures have been ordered. She will be started on metronidazole and Levaquin. Pain control with Dilaudid and p.o. narcotics as needed. Because of the extensive nature of the lesion and narrowing, General Surgery has been consulted and they are involved and plan on scoping when she is stable. The possibility of occult malignancy is not ruled out, particularly given the history of previous narrow caliber stools and no obvious infectious etiology. The patient does not appear to be septic. She will have a blood culture drawn with a culture for the usual bacterial pathogens plus ova and parasites and stool wbc. The patient has definite blood. She is not currently anemic. She has no extra colonic signs at this point, and her blood pressures are stable. Further evaluation after initial results are known. MMODAL /[id number]
[2019-01-11] MEDS: Dextrose 5%-0.45% NaCl 1,000 ML IV SCH ×2 (15:15→22:50)
[2019-01-11] MEDS: Morphine 2 MG/ML Syringe IVPUSH PRN ×2 (15:26→19:36)
[2019-01-11] MEDS: Nicotine 14 MG/24 Hr Patch TRDERM SCH (16:52)
--- NOTE | 2019-01-11 19:34 | CR ---
Abdomen: Supine view of the abdomen was obtained. Comparison: No previous study. Calcification is noted within the upper right abdomen compatible with large gallstone measuring around 1.8 cm. Phleboliths are seen within the pelvis. Sclerosis is noted around the pubic symphysis which is degenerative in etiology. Joint spaces within both hips are preserved. Sacroiliac joints are within normal limits. Bowel gas pattern is normal. Impression: 1. Incidental findings. Nothing acute is appreciated on supine abdominal x-ray. Diagnostic code #2
[2019-01-11] MEDS: Ondansetron 4 MG Tab.DIS PO PRN (19:35)
[2019-01-11] MEDS: metroNIDAZOLE/Normal Saline 500 MG in Premix Bag 1 BAG IV SCH (21:07)
[2019-01-12] MEDS: Morphine 2 MG/ML Syringe IVPUSH PRN ×3 (00:34→10:09)
[2019-01-12] MEDS: Ondansetron 4 MG Tab.DIS PO PRN ×2 (02:04→08:01)
[2019-01-12] MEDS: metroNIDAZOLE/Normal Saline 500 MG in Premix Bag 1 BAG IV SCH (05:45)
[2019-01-12] MEDS: Dextrose 5%-0.45% NaCl 1,000 ML IV SCH (07:01)
--- NOTE | 2019-01-12 07:04 | CONS ---
CONSULTING PHYSICIAN: Bianca Wood MD DATE OF CONSULTATION: 01/11/2019 CHIEF COMPLAINT: Cramp and bloody stool. HISTORY OF PRESENT ILLNESS: Ms. Reynoso is a very pleasant 48-year-old female who was awoken about midnight when she had some very weird cramping and pain more on her left side. This was not associated with any nausea or vomiting. She subsequently went to the bathroom and noted that she had blood in her stools. Over the course of the morning, she had several more episodes and subsequently came here. On further discussion with the patient, she has never had any bloody stools, but what she has had within probably the last 2 years was several episodes where she would have some abdominal pain that would be short lived. She has also had several episodes where she stated her stools looked like ribbons. There is no family history of any sort of ulcerative colitis or Crohn disease or any signs of inflammatory bowel disease. She herself states she has, otherwise, been healthy with no fevers or chills. She subsequently arrived here and she was seen, and she had a rigid sigmoidoscopy all the way to about 20 and it was noted there was no blood. However, then she went ahead and had another bloody stool. Her labs tests here with a WBC of 16,000 and her H and H are 14 and 42, respectively. Her platelet count is normal. Her INR is normal. Her electrolytes are normal with the exception of her BUN being 19. Her glucose is 112. Her liver functions are normal. She did have a CT scan of her abdomen and pelvis. I have reviewed this not only myself, but also with the patient. She has significant bowel wall thickening and edema all the way through her descending colon and is really pretty impressive this is very significant narrowing of the entire lumen. There was also noted to be a cyst on her kidney as well as cholelithiasis. ALLERGIES: None. SOCIAL HISTORY: Smoking 1 pack a day. Alcohol social, much less than she used to. She has 3 children, alive and well. One was done by . She had 1 brother who of complications of alcoholism and a sister who is alive and well. Her parents are alive and well. CURRENT MEDICATIONS: 1. She states she is on an [id number]-cpenklg Protonix. 2. Oxybutynin for her bladder spasms. 3. p.r.n. acyclovir. PAST SURGICAL HISTORY: Also, includes a as well as a hysterectomy. REVIEW OF SYSTEMS: GENERAL: No history of seizures or strokes. EYES: No blurred or double vision. ENDOCRINE: No thyroid, diabetes, or hepatitis. LUNGS: She denies any shortness of breath or cough. No history of pneumonia. No history of palpitations or chest pain. ABDOMEN: She states she has the "heartburn," but otherwise has no documented evaluation for any abdominal pathology. GASTROINTESTINAL: See HPI. GENITOURINARY: No hematuria or dysuria. EXTREMITIES: No history of DVT, bruising, or calf tenderness. She does state that at her work, she will sometimes have ankle swelling. PHYSICAL EXAMINATION: GENERAL: This is a comfortable-appearing female. HEENT: Sclerae are white. NECK: Without mass. LUNGS: Clear. HEART: Rhythm is regular. ABDOMEN: There are decreased bowel sounds. It is nondistended, and there is no guarding or rebound, but there is some mild tenderness in the left lower quadrant. EXTREMITIES: Ankles are free of edema. IMPRESSION AND PLAN: Indeed, there is a very worrisome long segment area of diffuse narrowing of a thickened segment of her descending colon. I clearly discussed with the patient that the worrisome thing here is that soon that this will be obstructing. I stated to her the possible causes could be inflammatory bowel disease, which has not been diagnosed. Other causes could be even a cancer. I explained to her at this point in time, I would like her to be on clear liquids because it would be nice if we could pass a pediatric scope at least up into that area to get an idea of what we are dealing with. I also pressed as saying that she is someone who I would say at this point in time will need to have that segment of colon resected. I offered her transfer to a higher level of care and she declined. At this point in time, she is hemodynamically stable. No blood transfusion has been needed. The plan will be to put her on clear liquids here and hopefully tomorrow, I will be able to pass the scope up to further delineate what we are doing. She seemed to understand this. I did show her the CT scan pictures themselves, and she seems to understand the above. History of smoking. Status post hysterectomy. Bladder spasms. Interestingly enough, maybe was really related to colonic issues because of the chronicity and this long segment of narrowing that we are seeing. MMODAL /[id number]
[2019-01-12] MEDS: Nicotine 14 MG/24 Hr Patch TRDERM SCH (08:01)
[2019-01-12] MEDS ORDERED: Enoxaparin 40 MG/0.4 ML Syringe SUBCUT SCH (09:00)
[2019-01-12] MEDS ORDERED: Magnesium Sulfate/Water 2 GM in Premix Bag 1 BAG IV ONE (09:37)
[2019-01-12] MEDS ORDERED: Levofloxacin/Dextrose 5%-Water 500 MG in Premix Bag 1 BAG IV SCH (10:00)
--- NOTE | 2019-01-12 10:02 | PCM.DCSUM1 ---
Discharge Summary - Hospital Course HPI Initial Comments: Lexus Be is a 48 -year-old female who presented to ED on 01/11/19 with dizziness and blood in her stools. She was noted to have acute onset of bleeding per rectum since 1 AM earlier in the day. She presented to our ED at 0821 on 01/11/19. She denies any history of colon cancer or colon problems. She did have a hysterectomy with retention of her ovaries. She does still have her appendix and gallbladder. She also notes worsening generalized abdominal pain and cramping. She does have a history of GERD and takes Protonix or Nexium daily. She reports 1-2 beers per day and a half pack to a pack a day smoking. I will defer to the ED note and the dictated admission history as it is very detailed. Of note she did initially deny transfer Diagnosis: Stroke: No - Discharge Data Discharge Date: 01/12/19 (Admit date: 01/11/19) Discharge Disposition: DC/Tfer to Acute Hospital 02 Condition: Stable - Discharge Diagnosis/Problem(s) (1) Abdominal pain SNOMED Code(s): 64360179 ICD Code: R10.9 - UNSPECIFIED ABDOMINAL PAIN Status: Acute Priority: High Current Visit: Yes Qualifiers: Abdominal location: left lower quadrant Qualified Code(s): R10.32 - Left lower quadrant pain (2) Lower gastrointestinal bleed SNOMED Code(s): 16554372 ICD Code: K92.2 - GASTROINTESTINAL HEMORRHAGE, UNSPECIFIED Status: Acute Priority: High Current Visit: Yes (3) Non-specific colitis SNOMED Code(s): 122704645 ICD Code: K52.9 - NONINFECTIVE GASTROENTERITIS AND COLITIS, UNSPECIFIED Status: Acute Priority: High Current Visit: Yes - Patient Summary/Data Labs Pending at D/C: None Hospital Course: Lexus was admitted to the floor for nonspecific colitis. Dr. Wood, general surgeon, was contacted and did see the patient. CT scans were reviewed and she noted a large "sausagelike" descending colon. She was also noted to have a large gallstone. There are concerns that this area may rapidly occlude and may be cancerous. Patient did report a history of "ribbon like stools" in the past. These were her exact words. She does have a history of bladder spasms which may be tied into this problem. No personal or family history of rectal cancer or bowel problems. She did vomit yesterday and has been nauseous since. Magnesium and potassium were low today and will be supplemented during transport. She has been getting Levaquin and Flagyl IV. White count today did increase from 16-18. She continues to have diarrhea with blood in it. She also continues to complain of abdominal pain. She did initially refused transport however today after speaking with her general surgeon she has agreed to transport. She did select [facility] in [place]. Call was made to [facility] 1 call and discussed case with colorectal surgeon, Dr. Guardado. He agreed patient will need transport and would like us to admit under hospitalist. , hospitalist, was then contacted who did agree to transfer. She'll be transferred via [facility] to [facility]. She has remained nothing by mouth while here. She has been receiving D5NS IV fluids as well. - Patient Instructions Diet: NPO - Discharge Plan *PRESCRIPTION DRUG MONITORING PROGRAM REVIEWED*: Not Applicable *COPY OF PRESCRIPTION DRUG MONITORING REPORT IN PATIENT LOBITO: Not Applicable Home Medications: Home Meds Acyclovir 200 mg PO DAILY PRN 06/30/17 [History] Oxybutynin 5 mg PO DAILY 12/28/17 [History] Pantoprazole Sodium [Protonix] 40 mg PO DAILY 12/28/17 [History] Oxygen Therapy Mode: Room Air Patient Handouts: Steps to Quit Smoking Forms: ED Department Discharge Referrals: PCP,None [Primary Care Provider] - - Discharge Summary/Plan Comment DC Time >30 min.: Yes (60 minutes ) - General Info Date of Service: 01/12/19 Admission Dx/Problem (Free Text: Non-specific colitis Functional Status: Reports: Pain Controlled, Ambulating, Urinating. Denies: Tolerating Diet (NPO), New Symptoms - Review of Systems General: Reports: No Symptoms. Denies: Fever, Weakness, Fatigue, Malaise, Chills HEENT: Reports: No Symptoms. Denies: Headaches, Sore Throat Pulmonary: Reports: No Symptoms. Denies: Shortness of Breath, Pleuritic Chest Pain, Cough, Wheezing Cardiovascular: Reports: No Symptoms. Denies: Chest Pain, Palpitations, Dyspnea on Exertion, Edema Gastrointestinal: Reports: Abdominal Pain (Generalized ), Decreased Appetite, Diarrhea, Hematochezia, Nausea. Denies: Constipation, Difficulty Swallowing, Vomiting (none today ) Genitourinary: Reports: No Symptoms. Denies: Pain Musculoskeletal: Reports: No Symptoms Skin: Reports: No Symptoms Neurological: Reports: No Symptoms Psychiatric: Reports: No Symptoms - Patient Data Vitals - Most Recent: Last Vital Signs Temp 98.8 F 01/12/19 09:38 Pulse 69 01/12/19 09:38 Resp 14 01/12/19 09:38 BP 126/88 01/12/19 09:38 Pulse Ox 96 01/12/19 09:38 Orthostatic Blood Pressure [ 131/78 Standing] Orthostatic Blood Pressure [ 144/74 Sitting] Orthostatic Blood Pressure [ 130/71 Supine] Weight - Most Recent: 172 lb 11.2 oz I&O - Last 24 hours: Intake & Output 01/11/19 01/12/19 01/12/19 22:59 06:59 14:59 Intake Total 292 1595 Output Total 200 Balance 92 1595 Lab Results - Last 24 hrs: Laboratory Results - last 24 hr 01/12/19 01/12/19 Range/Units 08:45 08:45 WBC 18.96 H (3.98-10.04) K/mm3 RBC 4.26 (3.98-5.22) M/mm3 Hgb 13.6 (11.2-15.7) gm/L Hct 39.7 (34.1-44.9) % MCV 93.2 (79.4-94.8) fl MCH 31.9 (25.6-32.2) pg MCHC 34.3 (32.2-35.5) g/dl RDW Std Deviation 42.1 (36.4-46.3) fL Plt Count 269 (182-369) K/mm3 MPV 9.5 (9.4-12.3) fl Neut % (Auto) 84.1 H (34.0-71.1) % Lymph % (Auto) 7.2 L (19.3-51.7) % Harper % (Auto) 8.2 (4.7-12.5) % Eos % (Auto) 0.1 L (0.7-5.8) Baso % (Auto) 0.1 (0.1-1.2) % Neut # (Auto) 15.94 H (1.56-6.13) K/mm3 Lymph # (Auto) 1.37 (1.18-3.74) K/mm3 Harper # (Auto) 1.56 H (0.24-0.36) K/mm3 Eos # (Auto) 0.02 L (0.04-0.36) K/mm3 Baso # (Auto) 0.02 (0.01-0.08) K/mm3 Manual Slide Review Abnormal smear Sodium 139 (136-145) mEq/L Potassium 3.1 L (3.5-5.1) mEq/L Chloride 104 (98-107) mEq/L Carbon Dioxide 24 (21-32) mEq/L Anion Gap 14.1 (5-15) BUN 5 L (7-18) mg/dL Creatinine 0.9 (0.55-1.02) mg/dL Est Cr Clr Drug Dosing 74.34 mL/min Estimated GFR (MDRD) > 60 (>60) mL/min BUN/Creatinine Ratio 5.6 L (14-18) Glucose 134 H (74-106) mg/dL Calcium 8.1 L (8.5-10.1) mg/dL Magnesium 1.6 L (1.8-2.4) mg/dl C-Reactive Protein 8.4 H* (<1.0) mg/dL Med Orders - Current: Current Medications Acetaminophen (Tylenol) 650 mg PO Q4H PRN PRN Reason: Pain (Mild 1-3)/fever Enoxaparin Sodium (Lovenox) 40 mg SUBCUT DAILY [facility] Last Admin: 01/12/19 08:04 Dose: Not Given Dextrose/Sodium Chloride (Dextrose 5%-1/2 Ns) 1,000 mls @ 125 mls/hr IV ASDIRECTED [facility] Last Admin: 01/12/19 07:01 Dose: 125 mls/hr Metronidazole 500 mg/ Premix 100 mls @ 100 mls/hr IV Q8H [facility] Last Admin: 01/12/19 05:45 Dose: 100 mls/hr Levofloxacin/Dextrose 500 mg/ (Premix) 100 mls @ 100 mls/hr IV Q24H [facility] Last Admin: 01/12/19 09:40 Dose: 100 mls/hr Magnesium Sulfate 2 gm/ Premix 50 mls @ 25 mls/hr IV ONETIME ONE Stop: 01/12/19 11:36 Miscellaneous Information (Remove Patch) 1 ea TRDERM DAILY [facility] Morphine Sulfate (Morphine) 2 mg IVPUSH Q4H PRN PRN Reason: Pain (severe 7-10) Stop: 01/12/19 13:23 Last Admin: 01/12/19 06:58 Dose: 2 mg Nicotine (Habitrol) 14 mg TRDERM DAILY [facility] Last Admin: 01/12/19 08:01 Dose: 14 mg Ondansetron HCl (Zofran Odt) 8 mg PO Q6H PRN PRN Reason: Nausea/Vomiting Last Admin: 01/12/19 08:01 Dose: 8 mg Discontinued Medications Diatrizoate Meglum/Diatrizoate Sod (Gastrografin 37%) 120 ml PO ONETIME ONE Stop: 01/11/19 10:48 Last Admin: 01/11/19 11:04 Dose: 90 ml Hydromorphone HCl (Dilaudid) 0.5 mg IVPUSH ONETIME ONE Stop: 01/11/19 08:39 Last Admin: 01/11/19 09:13 Dose: 0.5 mg Hydromorphone HCl (Dilaudid) 0.5 mg IVPUSH ONETIME STA Stop: 01/11/19 10:12 Last Admin: 01/11/19 10:16 Dose: 0.5 mg Hydromorphone HCl (Dilaudid) 0.5 mg IVPUSH ONETIME STA Stop: 01/11/19 13:04 Last Admin: 01/11/19 13:10 Dose: 0.5 mg Dextrose/Sodium Chloride (Dextrose 5%-Normal Saline) 1,000 mls @ 999 mls/hr IV ASDIRECTED [facility] Last Admin: 01/11/19 09:03 Dose: 999 mls/hr Levofloxacin/Dextrose 750 mg/ (Premix) 150 mls @ 100 mls/hr IV ONETIME ONE Stop: 01/11/19 11:20 Last Admin: 01/11/19 09:59 Dose: 100 mls/hr Metronidazole 500 mg/ Premix 100 mls @ 100 mls/hr IV ONETIME ONE Stop: 01/11/19 13:25 Last Admin: 01/11/19 12:57 Dose: 100 mls/hr Iohexol (Omnipaque-300) 100 ml IVPUSH ONETIME ONE Stop: 01/11/19 10:47 Last Admin: 01/11/19 11:04 Dose: 100 ml Lidocaine HCl (Xylocaine 2% Jelly) 10 ml MUCMEM ONETIME ONE Stop: 01/11/19 08:40 Last Admin: 01/11/19 09:16 Dose: 10 ml Ondansetron HCl (Zofran) 4 mg IVPUSH ONETIME ONE Stop: 01/11/19 08:39 Last Admin: 01/11/19 09:10 Dose: 4 mg Sodium Chloride (Saline Flush) 10 ml FLUSH ONETIME PRN PRN Reason: IV FLUSH Last Admin: 01/11/19 11:04 Dose: 10 ml - Exam General: Reports: Alert, Oriented, Cooperative, No Acute Distress HEENT: Reports: Pupils Equal, Pupils Reactive, EOMI, Mucous Membr. Moist/[place] Neck: Reports: Supple, Trachea Midline Lungs: Reports: Clear to Auscultation, Normal Respiratory Effort Cardiovascular: Reports: Regular Rate, Regular Rhythm GI/Abdominal Exam: Soft, No Distention, No Abnormal Bruit, Tender (generalzied ) , Abnormal Bowel Sounds (Female) Exam: Deferred Rectal (Female) Exam: Deferred Back Exam: Reports: Normal Inspection, Full Range of Motion Extremities: Normal Inspection, Normal Range of Motion, Non-Tender, No Pedal Edema, Normal Capillary Refill Skin: Reports: Warm, Dry, Intact Neurological: Reports: No New Focal Deficit Psy/Mental Status: Reports: Alert
[2019-01-12] MEDS ORDERED: Potassium Chloride 10 MEQ in Premix Bag 1 BAG IV SCH (10:45)
--- NOTE | 2019-01-13 07:29 | CONS ---
CONSULTING PHYSICIAN: Bianca Wood MD DATE OF CONSULTATION: 01/12/2019 CHIEF COMPLAINT: Lower GI bleed. HISTORY OF PRESENT ILLNESS: The patient is a 48-year-old female who I had the opportunity to evaluate yesterday. She has a very remarkably thickened, narrowed, large segment of left colon. She has had several bloody stools since I saw her, but now she states there might be some more liquid just plain liquid. She has been hemodynamically stable and she is afebrile. PHYSICAL EXAMINATION: Mildly tender, but almost on the left side, but no distention. IMPRESSION AND PLAN: Lower GI bleed secondary to some significant pathology of the left colon to include a possibility of a large segment of inflammatory bowel disease versus tumor. I explained to the patient that I think that she really needs to go to a higher level of care so that this can be formally evaluated. Even for me to do any sort of like a scope would be futile because I think she needs additional services, which we cannot provide here. She is totally understanding. I will discuss this to all doctors here in this team and we will keep her n.p.o. and transfer her to [facility]. I also asked them to hold the Lovenox due to the fact that she is actively bleeding. Her prognosis is guarded pending the etiology of this process. NORA /[id number]
[2019-01-13] MEDS ORDERED: Remove Patch*NICOTINE PATCH TRDERM SCH (09:00)
== END 2019-01-12 11:14 | DRG 249 ==
LOC: JD.ED 08:02 → JD.MS 12:38
PROVIDERS: ADMIT Pediatrics; ATTEND Pediatrics
PROC: 0DJD8ZZ Inspection of Lower Intestinal Tract, Via Natural or Artificial Opening Endoscopic (ICD-10-PCS; principal; 2019-01-12)
DX: K52.9 Noninfective gastroenteritis and colitis, unspecified (principal); K21.9 Gastro-esophageal reflux disease without esophagitis; F17.210 Nicotine dependence, cigarettes, uncomplicated; F32.9 Major depressive disorder, single episode, unspecified; K64.8 Other hemorrhoids; Z90.49 Acquired absence of other specified parts of digestive tract; Z85.038 Personal history of other malignant neoplasm of large intestine; Z79.899 Other long term (current) drug therapy
CPT/HCPCS: 36415; 45300; 74018; 74018-26; 74177; 74177-26; 80048; 80053; 81001; 83735; 85007; 85025; 85027; 85610; 85730; 86140; 86677; 96361; 96365; 96366; 96375; 96376; 99284; 99285-25; A9270-GY; J1170; J1956; J2270; J2405; J3475; J3480; J3490; J7042; Q9963; Q9967

== ENCOUNTER 2021-01-05 10:34 | Emergency (ER) | payer SELFPAY ==
--- NOTE | 2021-01-05 11:56 | EDM.PDOC ---
ED HPI GENERAL MEDICAL PROBLEM - General Chief Complaint: General Stated Complaint: BLEEDING UNDER SKIN IS GETTING WORSE Time Seen by Provider: 01/05/21 11:11 Source of Information: Reports: Patient, RN Notes Reviewed History Limitations: Reports: No Limitations - History of Present Illness INITIAL COMMENTS - FREE TEXT/NARRATIVE: Patient is a 50-year-old female who presents to the ER for the evaluation of some lesions on her lower legs. She was seen at the [facility] by her primary care provider yesterday, and she was complaining about some redness to her right and left lower leg, that seems to appear after she stands for long periods of time. Notes that she has started a new job, and is on her her feet for about 8 hours a day, this seems to be when the lesions worsen. She was told it was bleeding into her skin, and that it should get better with time. She does get some swelling around her ankles that time as well. No other medications or interventions were done at the [facility] yesterday. She called them again today, she thought the lesions were getting worse or spreading, they told her to come to the ER for evaluation as they only [facility] for what they could do for her. Patient does complain of skin problems where her skin seems to breakdown from time to time and this has been ongoing. Also the swelling is ongoing and intermittent. This is not itchy, does not seem to be bothersome, the patient can feel the lesions there. Patient denies any other sick-like symptoms, fever/chills, cough/shortness of breath, nausea/vomiting/diarrhea. - Related Data Allergies Allergy/AdvReac Type Severity Reaction Status Date / Time latex Allergy Intermediate Rash Verified 01/11/19 14:18 Home Meds: Home Meds Acyclovir 200 mg PO DAILY PRN 06/30/17 [History] Oxybutynin 5 mg PO DAILY 12/28/17 [History] Pantoprazole Sodium [Protonix] 40 mg PO DAILY 12/28/17 [History] Cefdinir [Omnicef] 300 mg PO BID 5 Days #10 cap 01/05/21 [Rx] Past Medical History HEENT History: Reports: Other (See Below) Other HEENT History: wears glasses Gastrointestinal History: Reports: GERD, GI Bleed, Other (See Below) Other Gastrointestinal History: ulcers Genitourinary History: Reports: None 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: Psychiatric History: Reports: Addiction - Infectious Disease History Infectious Disease History: Reports: Chicken Pox, Herpes - Past Surgical History HEENT Surgical History: Reports: Oral Surgery GI Surgical History: Reports: EGD Female Surgical History: Reports: Section, Hysterectomy Social & Family History - Family History Family Medical History: No Pertinent Family History - Tobacco Use Tobacco Use Status *Q: Current Every Day Tobacco User Years of Tobacco use: 30 Packs/Tins Daily: 1 - Caffeine Use Caffeine Use: Reports: Coffee - Recreational Drug Use Recreational Drug Use: No - Living Situation & Occupation Living situation: Reports: with Spouse Occupation: Unemployed ED ROS GENERAL - Review of Systems Review Of Systems: Comprehensive ROS is negative, except as noted in HPI. ED EXAM, GENERAL - Physical Exam Exam: See Below Exam Limited By: No Limitations General Appearance: Alert, WD/WN, No Apparent Distress Respiratory/Chest: No Respiratory Distress, Lungs Clear, Normal Breath Sounds, No Accessory Muscle Use, Chest Non-Tender Cardiovascular: Normal Peripheral Pulses, Regular Rate, Rhythm, No Edema Peripheral Pulses: 2+: Radial (L), Radial (R) Extremities: Normal Range of Motion, Normal Capillary Refill Neurological: Alert, Oriented, Normal Cognition, No Motor/Sensory Deficits Psychiatric: Normal Affect, Normal Mood Skin Exam: Warm, Dry, Intact, Normal Color, Other (Erythematous macules to the patient's lower legs, they seem to be in the more medial distribution of the patient's legs, some are pinpoint, some are slightly larger, these are not urticarial. Roughly 1+ swelling to the medial left ankle near one of large lesion areas) Course - Vital Signs Last Recorded V/S: Last Vital Signs Temp 97 F 01/05/21 10:56 Pulse 80 01/05/21 10:56 Resp 16 01/05/21 10:56 BP 135/82 01/05/21 10:56 Pulse Ox 99 01/05/21 10:56 - Orders/Labs/Meds Labs: Laboratory Tests 01/05/21 01/05/21 01/05/21 Range/Units 12:01 12:01 12:01 WBC 9.38 (3.98-10.04) K/mm3 RBC 3.95 L (3.98-5.22) M/mm3 Hgb 12.3 (11.2-15.7) gm/dl Hct 37.7 (34.1-44.9) % MCV 95.4 H (79.4-94.8) fl MCH 31.1 (25.6-32.2) pg MCHC 32.6 (32.2-35.5) g/dl RDW Std Deviation 43.8 (36.4-46.3) fL Plt Count 361 D (182-369) K/mm3 MPV 8.8 L (9.4-12.3) fl Neut % (Auto) 72.1 H (34.0-71.1) % Lymph % (Auto) 17.9 L (19.3-51.7) % [place] % (Auto) 8.5 (4.7-12.5) % Eos % (Auto) 1.0 (0.7-5.8) Baso % (Auto) 0.3 (0.1-1.2) % Neut # (Auto) 6.76 H (1.56-6.13) K/mm3 Lymph # (Auto) 1.68 (1.18-3.74) K/mm3 [place] # (Auto) 0.80 H (0.24-0.36) K/mm3 Eos # (Auto) 0.09 (0.04-0.36) K/mm3 Baso # (Auto) 0.03 (0.01-0.08) K/mm3 ESR 8 (0-20) mm/hr Sodium 140 (136-145) mEq/L Potassium 3.7 (3.5-5.1) mEq/L Chloride 107 (98-107) mEq/L Carbon Dioxide 25 (21-32) mEq/L Anion Gap 11.7 (5-15) BUN 24 H (7-18) mg/dL Creatinine 0.8 (0.55-1.02) mg/dL Est Cr Clr Drug Dosing 78.76 mL/min Estimated GFR (MDRD) > 60 (>60) mL/min BUN/Creatinine Ratio 30.0 H (14-18) Glucose 96 (70-99) mg/dL Calcium 7.9 L (8.5-10.1) mg/dL Total Bilirubin 0.3 (0.2-1.0) mg/dL AST 16 (15-37) U/L ALT 24 (14-59) U/L Alkaline Phosphatase 69 (46-116) U/L C-Reactive Protein 1.4 H* (<1.0) mg/dL Total Protein 6.3 L (6.4-8.2) g/dl Albumin 3.2 L (3.4-5.0) g/dl Globulin 3.1 gm/dL Albumin/Globulin Ratio 1.0 (1-2) Urine Color (Yellow) Urine Appearance (Clear) Urine pH (5.0-8.0) Ur Specific [place] (1.005-1.030) Urine Protein (Negative) Urine Glucose (UA) (Negative) Urine Ketones (Negative) Urine Occult Blood (Negative) Urine Nitrite (Negative) Urine Bilirubin (Negative) Urine Urobilinogen (0.2-1.0) Ur Leukocyte Esterase (Negative) Urine RBC (0-5) /hpf Urine WBC (0-5) /hpf Ur Squamous Epith Cells (0-5) /hpf Urine Bacteria (FEW) /hpf Urine Mucus (FEW) /hpf 01/05/21 Range/Units 13:02 WBC (3.98-10.04) K/mm3 RBC (3.98-5.22) M/mm3 Hgb (11.2-15.7) gm/dl Hct (34.1-44.9) % MCV (79.4-94.8) fl MCH (25.6-32.2) pg MCHC (32.2-35.5) g/dl RDW Std Deviation (36.4-46.3) fL Plt Count (182-369) K/mm3 MPV (9.4-12.3) fl Neut % (Auto) (34.0-71.1) % Lymph % (Auto) (19.3-51.7) % [place] % (Auto) (4.7-12.5) % Eos % (Auto) (0.7-5.8) Baso % (Auto) (0.1-1.2) % Neut # (Auto) (1.56-6.13) K/mm3 Lymph # (Auto) (1.18-3.74) K/mm3 [place] # (Auto) (0.24-0.36) K/mm3 Eos # (Auto) (0.04-0.36) K/mm3 Baso # (Auto) (0.01-0.08) K/mm3 ESR (0-20) mm/hr Sodium (136-145) mEq/L Potassium (3.5-5.1) mEq/L Chloride (98-107) mEq/L Carbon Dioxide (21-32) mEq/L Anion Gap (5-15) BUN (7-18) mg/dL Creatinine (0.55-1.02) mg/dL Est Cr Clr Drug Dosing mL/min Estimated GFR (MDRD) (>60) mL/min BUN/Creatinine Ratio (14-18) Glucose (70-99) mg/dL Calcium (8.5-10.1) mg/dL Total Bilirubin (0.2-1.0) mg/dL AST (15-37) U/L ALT (14-59) U/L Alkaline Phosphatase (46-116) U/L C-Reactive Protein (<1.0) mg/dL Total Protein (6.4-8.2) g/dl Albumin (3.4-5.0) g/dl Globulin gm/dL Albumin/Globulin Ratio (1-2) Urine Color Light yellow (Yellow) Urine Appearance Clear (Clear) Urine pH 7.0 (5.0-8.0) Ur Specific [place] 1.025 (1.005-1.030) Urine Protein Negative (Negative) Urine Glucose (UA) Negative (Negative) Urine Ketones Negative (Negative) Urine Occult Blood Negative (Negative) Urine Nitrite Positive H (Negative) Urine Bilirubin Negative (Negative) Urine Urobilinogen 0.2 (0.2-1.0) Ur Leukocyte Esterase Negative (Negative) Urine RBC 0-5 (0-5) /hpf Urine WBC 0-5 (0-5) /hpf Ur Squamous Epith Cells 0-5 (0-5) /hpf Urine Bacteria Many H (FEW) /hpf Urine Mucus Few (FEW) /hpf - Re-Assessments/Exams Free Text/Narrative Re-Assessment/Exam: 01/05/21 11:56 Patient presents to the ER for the lesions on her lower legs, it does possibly have the appearance of a vasculitis, with some research done on up-to-date. We will go ahead and check CBC, CMP, urinalysis, CRP and sed rate for initial evaluation. She may need to be referred back to her primary care provider for more rheumatoid studies like ANCA, rheumatoid factor, serum complement levels, ETC. also I do believe a referral to either rheumatology or dermatology would be in her best interest for further evaluation at this time. 01/05/21 13:31 Laboratory evaluation has resulted, patient CBC is unremarkable, sed rate is within normal limits, metabolic panel essentially unremarkable CRP is slightly elevated at 1.4, urinalysis demonstrates positive nitrites with many urine bacteria but no white cells per high-power field and no leukocyte esterase. For today's purposes, we will place her on a course of oral antibiotics for suspected UTI due to urine results, and have her follow-up with your regular care provider for further lab testing regarding the lesions on her legs. Departure - Departure Time of Disposition: 13:05 Disposition: Home, Self-Care 01 Condition: Good Clinical Impression: Petechial eruption UTI (urinary tract infection) Qualifiers: Urinary tract infection type: acute cystitis Hematuria presence: without hematuria Qualified Code(s): N30.00 - Acute cystitis without hematuria - Discharge Information *PRESCRIPTION DRUG MONITORING PROGRAM REVIEWED*: No *COPY OF PRESCRIPTION DRUG MONITORING REPORT IN PATIENT LOBITO: No Prescriptions: Cefdinir [Omnicef] 300 mg PO BID 5 Days #10 cap Instructions: Urinary Tract Infection, Adult, [id number] Referrals: PCP,Not In Area [Ordering Only Provider] - Forms: ED Department Discharge Additional Instructions: You were evaluated in the ER today for the lesions on your lower legs. These do appear to have a petechial or small bruising type appearance, however etiology is unclear, this could be due to a vasculitis in nature. Labs done at today's visit, demonstrate no focal abnormalities. I highly recommend you follow-up with your regular care provider, and they do more specialized testing like: rheumatoid factor, p-ANCA, complement studies, hepatitis B and C studies, and antinuclear antibodies or [place], to name a few. If your primary care provider does not feel comfortable ordering the tests, please have them refer you to rheumatology, and/or dermatology for possible skin biop sies, and further evaluation to see what is causing these lesions. Urinalysis at today's evaluation was positive for a UTI. You will be started on an oral antibiotic called Omnicef, please take 1 tablet twice daily until gone. This medication was electronically prescribed to the [facility] located in [place], [place]. For today's purposes, these are not life-threatening lesions; and there is no further work up that we are able to do for you, please try to keep off your feet as much as possible for long periods of time if this seems to make the lesions worse. Please return to the ER at any time if symptoms change or worsen. Sepsis Event Note (ED) - Evaluation Sepsis Screening Result: No Definite Risk - Focused Exam Vital Signs: Vital Signs Temp Pulse Resp BP Pulse Ox 01/05/21 10:56 97 F 80 16 135/82 99
== END 2021-01-05 13:52 | disposition home or self-care (01) ==
LOC: JD.ED 10:34
DX: N30.00 Acute cystitis without hematuria (principal); R21 Rash and other nonspecific skin eruption; K21.9 Gastro-esophageal reflux disease without esophagitis; Z79.899 Other long term (current) drug therapy; Z72.0 Tobacco use; Z91.040 Latex allergy status
CPT/HCPCS: 36415; 80053; 81001; 85025; 85652; 86140; 99283

== ENCOUNTER 2022-03-31 17:30 | Emergency (ER) | payer MEDICAID ==
[2022-03-31] MEDS ORDERED: Albuterol 0.083% 2.5 MG/3 ML Neb Soln NEB ONE ×2 (20:21→21:13)
[2022-03-31] MEDS ORDERED: Potassium Chloride 20 MEQ Tab.ER PO ONE (21:09)
[2022-03-31] MEDS ORDERED: Magnesium Oxide 400 MG Tab PO ONE (21:09)
[2022-03-31] MEDS ORDERED: Benzonatate 100 MG Cap PO ONE (21:13)
[2022-03-31] MEDS ORDERED: predniSONE 20 MG Tab PO ONE (22:15)
[2022-03-31] MEDS ORDERED: Albuterol 6.7 GM Inhaler INH PRN (22:20)
== END 2022-03-31 22:49 | disposition home or self-care (01) ==
LOC: JD.ED 17:30
DX: J40 Bronchitis, not specified as acute or chronic (principal); K21.9 Gastro-esophageal reflux disease without esophagitis; Z91.040 Latex allergy status; Z88.8 Allergy status to other drugs, medicaments and biological substances; Z79.82 Long term (current) use of aspirin; Z20.822 Contact with and (suspected) exposure to COVID-19
CPT/HCPCS: 36415; 71045; 80053; 83735; 85025; 86140; 87635; 94640; 99284; A9270; J7512; U0002

== ENCOUNTER 2022-04-05 11:16 | Emergency (ER) | payer MEDICAID | END 2022-04-05 15:04 | disposition home or self-care (01) | LOC: JD.ED 11:16 | DX: J40 Bronchitis, not specified as acute or chronic (principal); F17.210 Nicotine dependence, cigarettes, uncomplicated; Z91.040 Latex allergy status; Z91.048 Other nonmedicinal substance allergy status; Z20.822 Contact with and (suspected) exposure to COVID-19 | CPT/HCPCS: 36415; 71046; 71046-26; 80053; 85025; 99283; U0002 ==

== ENCOUNTER 2024-05-29 14:31 | Emergency (ER) | payer SELFPAY ==
[2024-05-29] MEDS ORDERED: Iopamidol 612 MG/ML 100 ML Bottle IVPUSH ONE (15:33)
[2024-05-29] MEDS: Sodium Chloride 0.9% 1,000 ML IV STA (15:36)
[2024-05-29] MEDS: Sodium Chloride 0.9% 10 ML Syringe FLUSH PRN (15:36)
[2024-05-29] MEDS: Ondansetron 4 MG/2 ML SDV IVPUSH ONE (15:36)
[2024-05-29 15:37] LABS: BASOPHILS PERCENT AUTO 0.5 % (0.0-1.0); EOSINOPHILS PERCENT AUTO 0.5 % (0.0-6.0); HEMATOCRIT 42.2 % (37.0-47.0); HEMOGLOBIN 14.3 gm/dl (12.0-16.0); IMMATURE GRAN ABSOLUTE AUTO 0.01 K/mm3 (0.00-0.05); IMMATURE GRAN PERCENT AUTO 0.1 % (0.0-0.4); LYMPHOCYTES ABSOLUTE AUTO 1.2 K/mm3 (1.0-4.8); MEAN CORPUSCULAR HGB CONC 33.9 g/dl (32.0-36.0); MEAN CORPUSCULAR VOLUME 88.7 fl (83.0-99.0); MEAN PLATELET VOLUME 8.7 fl (9.4-12.3); MONOCYTES ABSOLUTE AUTO 0.8 K/mm3 (0.0-0.8); MONOCYTES PERCENT AUTO 9.7 % (0.0-8.0); NEUTROPHILS PERCENT AUTO 74.2 % (41.0-71.0); PLATELET COUNT,PLT 414 K/mm3 (150-400); RED BLOOD CELL COUNT 4.76 M/mm3 (4.10-5.30); WHITE BLOOD CELL COUNT,WBC 8.07 K/mm3 (3.9-11.3)
[2024-05-29 15:59] LABS: ALBUMIN 3.6 g/dl (3.4-5.0); ANION GAP 12.2 (5-15); BILIRUBIN TOTAL 0.2 mg/dL (0.2-1.0); BUN/CREATININE RATIO 12.5 (14-18); C-REACTIVE PROTEIN 0.13 mg/dL (<0.30); CALCIUM 9.1 mg/dL (8.5-10.1); CREATININE 1.2 mg/dL (0.55-1.02); EST CRCL DRUG DOSING (CG) 52.72 mL/min; POTASSIUM,K 3.2 mEq/L (3.5-5.1); PROTEIN TOTAL,TP 7.1 g/dl (6.4-8.2)
== END 2024-05-29 17:10 | disposition home or self-care (01) ==
LOC: JD.ED 14:31
DX: N20.2 Calculus of kidney with calculus of ureter (principal); F17.210 Nicotine dependence, cigarettes, uncomplicated; Z86.16 Personal history of COVID-19; Z90.49 Acquired absence of other specified parts of digestive tract; Z90.710 Acquired absence of both cervix and uterus; Z79.899 Other long term (current) drug therapy; Z79.82 Long term (current) use of aspirin; Z91.040 Latex allergy status; Z88.2 Allergy status to sulfonamides; Z91.048 Other nonmedicinal substance allergy status
CPT/HCPCS: 36415; 74177; 80053; 85025; 86140; 96361; 96374; 99284; J2405; J3490; J7030

== ENCOUNTER 2024-09-11 08:12 | Emergency (ER) | payer SELFPAY ==
[2024-09-11] MEDS: Lidocaine 1% with EPINEPHrine 1:100,000 20 ML MDV INJECT ONE (10:15)
== END 2024-09-11 10:20 | disposition home or self-care (01) ==
LOC: JD.ED 08:12
DX: L02.01 Cutaneous abscess of face (principal); Z90.49 Acquired absence of other specified parts of digestive tract; Z90.710 Acquired absence of both cervix and uterus; Z86.16 Personal history of COVID-19; Z88.2 Allergy status to sulfonamides; Z91.040 Latex allergy status; Z91.048 Other nonmedicinal substance allergy status; Z79.82 Long term (current) use of aspirin; Z79.899 Other long term (current) drug therapy
CPT/HCPCS: 10060; 99283-25; J3490